=== PATIENT | male | born 1970 | race Caucasian/White ===

== ENCOUNTER 2016-08-04 11:06 | Emergency (ER) | payer OTHER ==
[2016-08-04 12:38] LABS: HEMOGLOBIN 16.1 gm/dl (14.0-17.5); RED BLOOD COUNT 5.17 M/UL (4.20-5.50); WHITE BLOOD COUNT 9.2 K/UL (4.5-11.0)
[2016-08-04 13:05] LABS: BUN/CREATININE RATIO 8 (0-10)
== END 2016-08-04 13:45 | disposition home or self-care (01) ==
LOC: ER1 11:06
PROVIDERS: Emergency Medicine
DX: R07.1 Chest pain on breathing (principal); E78.5 Hyperlipidemia, unspecified; Z88.5 Allergy status to narcotic agent; Z79.899 Other long term (current) drug therapy
CPT/HCPCS: 36415; 71101; 80053; 82550; 82553; 83874; 84484; 85025; 85379; 93005; 99285